=== PATIENT | male | born 1985 | race African-American/Black ===

== ENCOUNTER 2017-11-24 08:32 | Emergency (ER) | payer SELFPAY ==
[~2017-11-24] VITALS: Ht 185.4 cm; Wt 90.5 kg
[2017-11-24 08:36] VITALS: BP 130/80
== END 2017-11-24 10:44 | disposition left against medical advice (07) ==
LOC: EMS 08:33
DX: M79.672 Pain in left foot (principal); F17.210 Nicotine dependence, cigarettes, uncomplicated
CPT/HCPCS: 99281